=== PATIENT | male | born 1955 | race Caucasian/White ===

== ENCOUNTER 2016-11-07 14:31 | Emergency (ER) | payer MEDICARE, OTHER ==
[~2016-11-07] VITALS: Ht 170.2 cm; Wt 80.5 kg
[2016-11-07 14:40] VITALS: Ht 170.2 cm; Wt 80.5 kg
[2016-11-07] MEDS ORDERED: KETOROLAC 30 MG INJ IM STA (15:47)
--- NOTE | 2016-11-07 17:09 | RADRPT ---
PROCEDURE: Shoulder radiograph. CLINICAL INDICATION: Generalized pain. COMPARISON: None relevant listed. TECHNIQUE: External rotation, internal rotation, and y- views of the right shoulder. FINDINGS: No fracture or destructive bone lesion. Alignment is anatomic. The acromioclavicular joint space is preserved. The glenohumeral joint space is preserved. No soft tissue mineralization or calcification. The visualized lung is clear. IMPRESSION: No acute fracture or dislocation. RPTAT: PP Physician Denis Date Time Electronically viewed and signed by Physician Denis on 11/07/2016 17:09 LG/
[2016-11-07] MEDS ORDERED: NAPR-688 PO (17:19)
[2016-11-07 17:28] VITALS: BP 125/69; PULSE 70; RESP 18; TEMP 97.9
--- NOTE | 2016-11-07 18:25 | ERD ---
ER Documentation Chief Complaint Date/Time DATE: 11/07/16 TIME: 18:23 Chief Complaint right shoulder pain x 4 days, denies chest pain, no trauma HPI 61-year-old male presents to the emergency department complaining of right shoulder pain for the past 4 days. Patient states the pain is located in the right anterior and posterior shoulder rating it 6 out of 10 increased with movement. He denies any trauma, chest pain, shortness of breath. Patient denies any fevers, redness. He denies taking any medications for this. ROS All systems reviewed and are negative except as per history of present illness. Medications Home Meds Active Scripts Naproxen* (Naproxen*) 500 Mg Tablet, 500 MG PO BID, #30 TAB Prov:CABRERA CYR PA-C 11/07/16 Allergies Allergies: Coded Allergies: No Known Allergy (Unverified , 11/07/16) PMhx/Soc Medical and Surgical Hx: pt denies Medical Hx, pt denies Surgical Hx Hx Alcohol Use: No Hx Substance Use: No Hx Tobacco Use: No Smoking Status: Never smoker Physical Exam Vitals Vital Signs Date Time Temp Pulse Resp B/P Pulse Ox O2 Delivery O2 Flow Rate FiO2 11/07/16 17:28 97.9 70 18 125/69 100 Room Air 11/07/16 14:40 98.5 95 18 142/83 98 Physical Exam General: WD/WN, in no apparent distress, non-toxic appearing HENT: NC/AT Eyes: Conjunctiva normal Neck: Supple Pulm: Clear to auscultation, normal labored breathing; no wheezing/rales/ rhonchi heard CV: Good capillary refill GI: Non-distended, no guarding Back: No masses Ext: Tenderness to palpation over the right shoulder, restricted range of motion due to pain Neuro: Moves on all fours Skin: intact Psych: Normal mood Results 24 hrs Current Medications Medications (Trade) Dose Ordered Sig/Jasiel Route PRN Reason Start Time Stop Time Status Last Admin Dose Admin Ketorolac Tromethamine (Toradol) 30 mg ONCE STAT IM 11/07/16 15:47 11/07/16 15:48 DC 11/07/16 16:01 Procedures/MDM This is a 61-year-old male presenting to the emergency department complaining of localized right shoulder pain, there was no evidence of a fracture or dislocation. X-ray of the right shoulder was done and did not show any evidence of acute fracture dislocation. Patient was neurovascular intact, I discussed with him to follow-up with an orthopedist for MRI as an outpatient. Prescription for naproxen was provided. Discussed return to the ER for any worsening signs or symptoms. He understands and agrees with this plan Departure Diagnosis: Primary Impression: Shoulder pain Condition: Stable Patient Instructions: Shoulder Pain (Uncertain Cause) Referrals: DOCTOR,NOT ON STAFF (PCP) Additional Instructions: FOLLOW UP WITH YOUR PRIMARY CARE PHYSICIAN TOMORROW.Return to this facility if you are not improving as expected. Take all medicines as directed. CABRERA CYR PA-C Nov 07, 2016 18:25
== END 2016-11-07 17:29 | disposition home or self-care (01) ==
LOC: FTE 14:31
DX: M25.511 Pain in right shoulder (principal)
CPT/HCPCS: 73030; 96372; 99284; J1885